=== PATIENT | female | born 1990 | race Caucasian/White ===

== ENCOUNTER → 2020-11-12 13:55 | Outpatient (CLI) | payer BC, SELFPAY ==
--- NOTE | 2020-11-12 13:55 | US_ITS ---
PROCEDURE: US OB /MATERNAL DETAIL CLINICAL INDICATION: US OB COMPLETE, anatomy Scan 20 wk+ COMPARISON: No exams were available for comparison FINDINGS: Single viable intrauterine gestation. Cephalic position. Placenta: placenta grade fundal 1. There is average amount fluid. The cervix appears satisfactory. Closed and measuring 3.5 cm in length. Complete survey performed and was unremarkable on the submitted images as in PACS. No discrete anomalies identified on survey imaging by technologist. Active fetus. Three-vessel cord with satisfactory umbilical cord insertion. 4- chamber heart noted. Survey of brain & ventricles Unremarkable. Face and neck survey unremarkable. Diaphragm and chest views unremarkable. Abdomen: Both kidneys noted and unremarkable. Stomach noted and satisfactory. Spine: Survey of the spine satisfactory with no anomalies identified nor imaged. Both arms and legs noted. Amniotic Fluid: Adequate. Maternal adnexa: No significant findings. Measurements: Average ultrasound age 19weeks 3days. Gestational Age 19weeks 3days Estimated due date by ultrasound age 1104/05/2021. Estimated weight 294g BPD = 19weeks 3days OFD = 19weeks 1day HC = 18weeks 4days AC = 19weeks 6days FL = 19weeks 3days Growth Percentile= 29Percent% Heart Rate = Cerebellum = 19weeks 3days Humerus = 19weeks 3days HC/AC is 1.08 CI is 0.81 FL/BPD is 0.69 FL/AC is 0.21 IMPRESSION: Single living intrauterine fetus currently in cephalic presentation with composite ultrasound age of 19 weeks 3 days with KANG by ultrasound of 04/05/2021. All structures were adequately seen and normal in appearance. Single small echogenic focus incidentally noted in the left ventricle. Dictated by: Constantino Tubbs MD 11/12/2020 17:48 Constantino Tubbs MD in [place] 11/12/2020 17:48
[2020-11-12 16:00] LABS: Basophils % 0.2 % (0.1-2.0); Eosinophils % 0.2 % (0.1-12.0); Hematocrit 37.6 % (37.0-47.0); Hemoglobin 13.1 g/dL (12.2-16.2); Lymphocytes # 1.7 K/mm3 (0.7-4.5); Lymphocytes % 13.6 % (10-50); Mean Corpuscular HGB Conc 34.9 g/dL (31.8-35.4); Mean Corpuscular Hemoglobin 31.6 pg (27.0-31.2); Mean Corpuscular Volume 90.5 fl (81-99); Monocytes # 0.4 K/mm3 (0.1-1.0); Monocytes % 3.3 % (1.7-9.3); Neutrophils # 10.2 K/mm3 (1.8-7.8); Neutrophils % 82.7 % (37.0-80.0); Platelet Count 161 K/mm3 (142-424); Red Blood Count 4.15 M/mm3 (4.20-5.40); Red Cell Distribution Width 13.3 % (11.5-17.5); White Blood Count 12.3 K/mm3 (4.8-10.8)
[2020-11-17 11:30] LABS: HIV Screen 4th Generation wRfx Non Reactive; Hepatitis B Surface Antigen Negative; Hepatitis C Antibody <.1; Rapid Plasma Reagin Ab Titer Non Reactive
== END ==
PROVIDERS: PCP Nurse Practitioner Obstetrics & Gynecology; Visit Provider Nurse Practitioner Obstetrics & Gynecology
DX: Z36.0 Encounter for antenatal screening for chromosomal anomalies (principal)
CPT/HCPCS: 36415; 76811; 85025; 86592; 86703; 86762; 86850; 87340; 87380; G0432

== ENCOUNTER → 2020-11-12 15:06 | Outpatient (CLI) | payer BC, SELFPAY | PROVIDERS: Visit Provider Nurse Practitioner Obstetrics & Gynecology | DX: Z36.0 Encounter for antenatal screening for chromosomal anomalies (principal) | CPT/HCPCS: 36415; 85025; 86592; 86703; 86762; 86850; 87340; 87380; G0432 ==

== ENCOUNTER → 2021-01-08 08:06 | Outpatient (CLI) | payer BC, SELFPAY ==
[2021-01-08 08:41] LABS: Glucose,Fasting 78 mg/dl (74-100)
[2021-01-08 11:07] LABS: Glucose 1 Hour 88 mg/dL (74-100)
[2021-01-09 08:51] LABS: Rubella Antibodies, IgG 1.08 index (Immune >0.99)
[2021-01-09 09:26] LABS: Hepatitis B Surface Antigen Negative (Negative); Hepatitis C Antibody <0.1 s/co ratio (0.0-0.9)
[2021-01-09 11:27] LABS: HIV Screen 4th Generation wRfx Non Reactive (Non Reactive)
[2021-01-09 13:07] LABS: Rapid Plasma Reagin Ab Titer Non Reactive (NonRea<1:1)
== END ==
PROVIDERS: Visit Provider Nurse Practitioner Obstetrics & Gynecology
DX: Z34.90 Encounter for supervision of normal pregnancy, unspecified, unspecified trimester (principal); Z3A.18 18 weeks gestation of pregnancy; Z11.4 Encounter for screening for human immunodeficiency virus [HIV]
CPT/HCPCS: 36415; 82951; 86592; 86703; 86762; 87340; 87380; G0432

== ENCOUNTER → 2021-02-26 17:22 | Outpatient (CLI) | payer BC, SELFPAY | PROVIDERS: Visit Provider Nurse Practitioner Obstetrics & Gynecology | DX: Z34.90 Encounter for supervision of normal pregnancy, unspecified, unspecified trimester (principal) | CPT/HCPCS: 86403 ==

== ENCOUNTER → 2021-03-03 13:42 | Outpatient (CLI) | payer BC, SELFPAY ==
--- NOTE | 2021-03-03 13:42 | US_ITS ---
PROCEDURE: US OB BIOPHYSICAL PROFILE CLINICAL INDICATION: SGA TECHNIQUE: FINDINGS: There is a single live fetus present in breech presentation. heart and body motion noted. The placenta is posterior in implantation and grade 3. The cervix measures two cm and is closed. The following parameters are obtained: Average ultrasound age is Average 33weeks 3days Estimated due date by ultrasound is 04/18/2021. Estimated weight is 2,291g. This is 11 percentile BPD: 30 weeks 6 days OFD: 38weeks HC: 33 weeks 6 days AC: 33 weeks 6 days FL: 35 weeks 1 day heart rate: bpm. HC/AC: 1.02 Cephalic index: 0.68 FL/BPD: 0.89 FL/AC: 0.23 Amniotic fluid index: 3.94cm Qualitative AFV: 2 breathing movements: 2 Gross body movements: 2 Tone: 2 Biophysical profile score: 8 IMPRESSION: Live IUP in breech presentation with an average ultrasound age of 33 weeks 3 days. The cephalic index is low at 68 percent is a FL/BPD is slightly high at 89 percent. Amniotic fluid index is low at 4 cm. Biophysical profile normal 8 of 8 Estimated weight is 2291 g which is the 11th percentile Dictated by: Rodolfo Camargo MD 03/03/2021 16:15 Rodolfo Camargo MD in [facility] 03/03/2021 16:15
== END ==
PROVIDERS: Visit Provider Nurse Practitioner Obstetrics & Gynecology
DX: O36.5990 Maternal care for other known or suspected poor fetal growth, unspecified trimester, not applicable or unspecified (principal)
CPT/HCPCS: 76816; 76819

== ENCOUNTER 2021-03-03 19:16 | Inpatient (IN) | payer BC, SELFPAY ==
[2021-03-03] VITALS (7 sets, daily range): BP systolic 117–147; BP diastolic 76–82; PULSE 66–86; RESP 16–18; TEMP 36.5–36.8; O2SAT 97–99; BMI 22.7
[2021-03-03 15:50] LABS: Microscopic, Urine URINE MICROSCOPIC (MICROSCOPIC)
[2021-03-03 15:54] LABS: Appearance,Urine SL CLOUDY (Clear); Bilirubin,Urine Negative (Negative); Blood, Urine TRACE-I (Negative); Color,Urine YELLOW (Yellow); Glucose,Urine (UA) Negative (Negative); Ketones,Urine Negative (Negative); Leukocyte Esterase,Urine 3+ (Negative); Nitrate,Urine Negative (Negative); Protein,Urine Negative (Negative); Specific Gravity, Urine <= 1.005 (1.005-1.030); Urobilinogen,Urine 0.2 EU/dl (0.2)
[2021-03-03 16:07] LABS: Coronavirus 19, PCR Not Detected (NotDetected); Influenza A, PCR Not Detected (NotDetected); Influenza B, PCR Not Detected (NotDetected)
[2021-03-03 16:08] LABS: Amphetamine/Metha Screen,Urine Negative ng/ml (<1000)
[2021-03-03 16:09] LABS: Barbiturates Screen,Urine Negative ng/ml (<200)
[2021-03-03 16:10] LABS: Benzodiazepines Screen,Urine Negative ng/ml (<200); Cannabinoid Screen,Urine Negative ng/ml (<50)
[2021-03-03 16:11] LABS: Cocaine Screen,Urine Negative ng/ml (<300); Methadone Screen,Urine Negative ng/ml (<300)
[2021-03-03 16:12] LABS: Opiate Screen,Urine Negative ng/ml (<300)
[2021-03-03 16:13] LABS: Phencyclidine Screen,Urine Negative ng/ml (<25)
[2021-03-03 16:17] LABS: Bacteria,Urine 1+ /lpf; RBC,Urine Occasional #/hpf (0-3); Squamous Epithelial Cell,Urine Occasional #/hpf (0-5)
[2021-03-03 17:06] LABS: Fetal Membrane Rupture (Rapid) Negative (Negative)
--- NOTE | 2021-03-03 17:30 | HMH.HP ---
*Admission Date: 03/03/21 *Chief complaint: low amniotic fluid (per ultrasound) *History of present illness: 30 yo @ 35 4/7 by dates who was admitted directly from radiology after outpatient ultrasound showed IUGR and oligohydramnios. care at [facility] with Dr. Lira History of 2 previous c sections: G1 @ 32 wks (patient reports uncertain placental abnormality and growth restriction) G2 @ 39 wks positive chlamydia at first appt this ; patient and were treated but no f/u culture noted +tobacco abuse 1 hr GCT 88 and GBS negative 20 wk anatomy ultrasound showed no anomalies, 3VC, fundal placenta and normal amniotic fluid Measuring small for dates with FH measurement 31cm on 02/26 (34 6/7) FH measurement was also 31cm on 02/12 (32 6/7), showing no interval growth in the 2 weeks between those appointments She was scheduled for ultrasound to assess small for dates measurements, which was performed today On ultrasound today, EFW 2291gm (11%), but this was skewed by head measurements which showed BPD 30 6/7w and OFD 38w INDU 3.94 and david breech presentation posterior placenta, grade 3 BPP 8/8 She denies any gush of fluid or leakage, denies regular contractions or vaginal bleeding Amnisure test negative in triage upon arrival Covid negative, UDS negative UA shows 3+ LE She desires tubal ligation to be done with c section [facility] History I have reviewed the patient's past medical history: Yes Medical History: Reports:: Anxiety *Have you ever received a pneumonia vaccine?: No *Have you received a flu vaccine this season?: No Other Surgeries: Yes: Amputation: No Fractures: No - *Social History Smoking Status: Current every day smoker Alcohol Intake: never Alcohol Intake Frequency:: other Substance Use Type: denies use *Occupational Status:: employed *Travel in the last 8 weeks: None - Psychiatric History Pschychiatric History:: Reports:: Anxiety Family Hx:: No significant family history 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 History (chlamydia positive 2020) : 3 Para: 2 Review of Systems - Review of Systems Review of systems:: pertinent systems reviewed and negative unless documented below - Constitutional Denies chills, Denies fever(s) - *Gastrointestinal Denies abdominal pain - *Genitourinary Denies abnormal vaginal bleeding Meds Home Medications Medication Instructions Recorded Confirmed Type vits no.126-ferrous fum 1 tab PO DAILY tab 11/06/20 03/03/21 History 28 mg iron-folic acid 800 mcg tablet Ferrous Sulfate 325 mg PO DAILY 03/03/21 03/03/21 History Allergies Allergy/AdvReac Type Severity Reaction Status Date / Time No Known Allergies Allergy Verified 02/26/21 10:27 Exam Vital signs and Labs for Last 24 Hours: Temp Pulse Resp BP Pulse Ox 98.2 F 79 18 117/80 99 03/03/21 15:38 03/03/21 15:38 03/03/21 15:14 03/03/21 15:38 03/03/21 15:38 Laboratory Results - last 24 hr 03/03/21 15:08: Urine Color Yellow, Urine Appearance Sl cloudy, Urine pH 7.0, Ur Specific [place] <= 1.005, Urine Protein Negative, Urine Glucose (UA) Negative, Urine Ketones Negative, Urine Blood Trace-i, Urine Nitrate Negative, Urine Bilirubin Negative, Urine Urobilinogen 0.2, Ur Leukocyte Esterase 3+ A, Urine RBC Occasional, Urine WBC 5-10, Ur Squamous Epith Cells Occasional, Urine Bacteria 1+ 03/03/21 15:08: Urine Opiates Screen Negative, Urine Methadone Screen Negative, Ur Barbituates Screen Negative, Ur Phencyclidine Scrn Negative, Ur Amphetamines Screen Negative, U Benzodiazepines Scrn Negative, Urine Cocaine Screen Negative, U Marijuana (THC) Screen Negative 03/03/21 15:48: Blood Type A Positive, Antibody Screen Negative 03/03/21 15:55: SARS-CoV-2 (PCR) Not detected, Influenza A Untype (PCR) Not detected, Influenza Type B (PCR) Not detected 03/03/21 16:40: Membrane Rupture Negative I & O for Last 24 hours: Intake & Output 03/01/21
[2021-03-03 17:35] LABS: Basophils # 0.1 K/mm3 (0-0.2); Basophils % 0.4 % (0.1-2.0); Eosinophils # 0.1 K/mm3 (0.0-0.4); Eosinophils % 0.5 % (0.1-12.0); Hematocrit 36.4 % (37.0-47.0); Hemoglobin 12.2 g/dL (12.2-16.2); Lymphocytes # 2.2 K/mm3 (0.7-4.5); Lymphocytes % 14.1 % (10-50); Mean Corpuscular HGB Conc 33.6 g/dL (31.8-35.4); Mean Corpuscular Hemoglobin 30.9 pg (27.0-31.2); Mean Corpuscular Volume 91.9 fl (81-99); Monocytes # 0.7 K/mm3 (0.1-1.0); Monocytes % 4.6 % (1.7-9.3); Neutrophils # 12.7 K/mm3 (1.8-7.8); Neutrophils % 80.5 % (37.0-80.0); Platelet Count 213 K/mm3 (142-424); Red Blood Count 3.96 M/mm3 (4.20-5.40); Red Cell Distribution Width 13.4 % (11.5-17.5); White Blood Count 15.7 K/mm3 (4.8-10.8)
[2021-03-03 17:37] LABS: MANUAL DIFFERENTIAL MANUAL DIFFERENTIAL (MANUAL DIFF)
[2021-03-03 18:05] LABS: Eosinophils % 2 % (0-3); Lymphocytes % 9 % (10-50); Monocytes % 3 % (2-9); Neutrophils % 82 % (42-76); Platelet Estimate Normal; Total Cells Counted 100
[2021-03-03 20:09] LABS: ABG PH 7.12 mmol/L (7.35-7.45)
--- NOTE | 2021-03-03 20:43 | HMH.OPNOTE ---
Date of procedure: 03/03/21 Pre-op Diagnosis:: 1. 35 4/7 weeks 2. IUGR 3. Oligohydramnios 4. David breech presentation 5. Previous CS x 2 6. Undesired fertility Post-op Diagnosis:: same Procedure performed:: 1. Low Transverse C Section 2. Bilateral tubal ligation Surgeon:: Justine Santos MD Machine Loader(s):: Dr. Wolfgang Rdz PROCESS DEVELOPMENT CHEMIST:: Johny Good Anesthesia: spinal Estimated blood loss (mL): 600 Operative findings:: Liveborn female in david breech presentation Extremely thin lower uterine segment Pelvic adhesions Operative note:: The patient was taken to the OR and spinal was administered without difficulty. She was prepped and draped in normal sterile fashion. A pfannenstiel skin incision was made with the scalpel and carried down to the fascia. The fascia was incised in the midline and sharply dissected off the rectus muscles. The muscles were in the midline and the peritoneum was entered sharply and extended bluntly. The [place] self retaining retractor was placed in the abdomen and a bladder flap was created with both sharp and blunt dissection. Moderate vesicouterine adhesions were noted. The uterus was incised in the lower uterine segment in a transverse fashion and extended bluntly. Amniotomy was performed and scant but clear fluid noted. The breech was delivered in controlled fashion, followed by the shouders and vertex. The vertex was elongated, as noted on ultrasound prior to delivery. The was immediately handed to awaiting hospital internship and nursing staff for evaluation after cord was clamped and cut. Cord blood was collected for pH and a cord segment was preserved. The placenta was manually extracted and noted to be intact. The uterus was repaired with 0-vicryl in a running/locked fashion. A second layer was placed for hemostasis. Filshie clips were placed over bilateral fallopian tubes, completely occluding the tubes. The peritoneum was closed with 2-0 vicryl in a running fashion. The fascia was closed with #1 vicryl in a running fashion. The subcutaneous fat was closed with 2-0 vicryl in an interrupted fashion. The skin was closed with ryanne. The patient tolerated the procedure well. Sponge, lap, needle and instrument counts were correct x 2. She was taken to PACU awake and in stable condition. Condition: stable Disposition: PACU Specimens:: 1. placenta 2. cord pH Complications:: none
--- NOTE | 2021-03-03 20:47 | HMH.ANESI ---
[facility] Anesthesia Record Part I Intake, IV Amount: 1,400 Estimated blood loss (mL): 600 Urine output (mL): 300 Blood Pressure: 134/81 SaO2: 97 Pulse Rate: 77 Respiratory Rate: 16 Temperature: 97.7 F Patient is:: Awake Stable to PACU at:: 20:45
--- NOTE | 2021-03-03 20:48 | HMH.ANESCL ---
[facility] Anesthesia Checklist - Patient Identification Patient Identification: Arm Band - Structural Data Admitted From: Inpatient Planned Operative Procedure/s: C/S Consent for Planned Operative Procedure(s) Verified: Yes - NPO Status Verified Time NPO: 10:00 - Airway Assessment C-Spine Mobility Assessed: Yes TMJ Mobility Assessed: Yes Dentition: Good Dentition - Neurological Assessment Level of Consciousness: Awake Hx Seizures: No Numbness or tingling in extremities: No - Anesthesia Plan Anesthesia Risk discussed: Yes Anesthesia Plan: Verified ASA Class: II Anesthesia Type: MAC w/Spinal [facility] History I have reviewed the patient's past medical history: Yes Medical History: Reports:: Anxiety *Have you ever received a pneumonia vaccine?: No *Have you received a flu vaccine this season?: No Anesthesia experience/problems:: None Other Surgeries: Yes: Amputation: No Fractures: No - *Social History Smoking Status: Current every day smoker Alcohol Intake: never Alcohol Intake Frequency:: other Substance Use Type: denies use *Occupational Status:: employed *Travel in the last 8 weeks: None - Psychiatric History Pschychiatric History:: Reports:: Anxiety Family Hx:: No significant family history 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
--- NOTE | 2021-03-03 21:29 | SUR.PHASEI ---
2054- called sloan Calle to the PACU to check fundus as well as myself. 2113- detailed report called to sloan calle.
[2021-03-04 04:56] VITALS: BP 97/61; PULSE 73; RESP 18; TEMP 36.9; O2SAT 95
[2021-03-04 08:30] LABS: Hematocrit 34.3 % (37.0-47.0); Hemoglobin 11.4 g/dL (12.2-16.2)
--- NOTE | 2021-03-04 08:45 | HMH.PHAINT ---
MEDICATION RECONCILIATION IS COMPLETE USING INFORMATION FROM PATIENT
--- NOTE | 2021-03-04 09:48 | HMH.PHAVTE ---
[facility] VTE Monitoring - Patient Demographics Admission date: 03/04/21 Report Date: 03/04/21 Time: 09:48 Allergies/Adverse Reactions: Patient Allergies No Known Allergies Allergy (Verified 02/26/21 10:27) Height: 1.68 m Weight: 63.957 kg Patient Problems: Current Active Problems UTI (urinary tract infection) (Acute) tubal ligation planned (Acute) History of chlamydia infection (Acute) IUGR (intrauterine growth restriction) (Acute) Tobacco smoking complicating (Acute) Previous section (Acute) Breech presentation (Acute) Oligohydramnios (Acute) 35 weeks gestation of (Acute) - VTE Risk Labs: VTE Related Lab Results Hgb 11.4 g/dL (12.2-16.2) L 03/04/21 07:57 Hct 34.3 % (37.0-47.0) L 03/04/21 07:57 Plt Count 213 K/mm3 (142-424) 03/03/21 15:48 Clinical Trial Participant: No - Prophylaxis VTE Prophylaxis Ordered?: Yes Types of VTE Prophylaxis: IPCS Knee High (POST OP) Location of Applied Device: Bilateral Lower Extremeties
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
--- NOTE | 2021-03-04 12:05 | HMH.ACPN2 ---
Internal Medicine - PN: Subj *Date: 03/04/21 *Time: 12:05 Interval history: POD #1 repeat c section and tubal ligation No unusual complaints Tolerating regular diet Ambulating and voiding without difficulty Postop Hgb 11.4 Ancef x 3 doses for UTI Exam Vital signs and Labs for Last 24 Hours: Temp Pulse Resp BP Pulse Ox 98.4 F 73 18 97/61 L 95 03/04/21 04:56 03/04/21 04:56 03/04/21 04:56 03/04/21 04:56 03/04/21 04:56 Laboratory Results - last 24 hr 03/03/21 15:08: Urine Color Yellow, Urine Appearance Sl cloudy, Urine pH 7.0, Ur Specific [place] <= 1.005, Urine Protein Negative, Urine Glucose (UA) Negative, Urine Ketones Negative, Urine Blood Trace-i, Urine Nitrate Negative, Urine Bilirubin Negative, Urine Urobilinogen 0.2, Ur Leukocyte Esterase 3+ A, Urine RBC Occasional, Urine WBC 5-10, Ur Squamous Epith Cells Occasional, Urine Bacteria 1+ 03/03/21 15:08: Urine Opiates Screen Negative, Urine Methadone Screen Negative, Ur Barbituates Screen Negative, Ur Phencyclidine Scrn Negative, Ur Amphetamines Screen Negative, U Benzodiazepines Scrn Negative, Urine Cocaine Screen Negative, U Marijuana (THC) Screen Negative 03/03/21 15:48: Blood Type A Positive, Antibody Screen Negative 03/03/21 15:48: WBC 15.7 H, RBC 3.96 L, Hgb 12.2, Hct 36.4 L, MCV 91.9, MCH 30.9, MCHC 33.6, RDW 13.4, Plt Count 213, MPV 10.0, Neut % (Auto) 80.5 H, Lymph % (Auto) 14.1, [place] % (Auto) 4.6, Eos % (Auto) 0.5, Baso % (Auto) 0.4, Neut # (Auto) 12.7 H, Lymph # (Auto) 2.2, [place] # (Auto) 0.7, Eos # (Auto) 0.1, Baso # (Auto) 0.1, Total Counted 100, Neutrophils % (Manual) 82 H, Band Neutrophils % 4.0, Lymphocytes % (Manual) 9 L, Monocytes % (Manual) 3, Eosinophils % (Manual) 2, Platelet Estimate Normal 03/03/21 15:55: SARS-CoV-2 (PCR) Not detected, Influenza A Untype (PCR) Not detected, Influenza Type B (PCR) Not detected 03/03/21 16:40: Membrane Rupture Negative 03/03/21 20:01: ABG pH 7.12 L* 03/04/21 07:57: Hgb 11.4 L, Hct 34.3 L I & O for Last 24 hours: Intake & Output 03/02/21 03/03/21 03/04/21 03/05/21 11:59 11:59 11:59 11:59 Intake Total 1400 / 1400 Balance 1400 / 1400 Weight 141 lb Narrative: CONSTITUTIONAL: no acute distress HEENT: mucous membranes moist PULMONARY: breathing unlabored without audible wheezes CV: no tachycardia or visible JVD; normal LE peripheral pulses ABD: soft, ND; appropriately tender but no rebound/guarding : fundus firm at/below umbilicus SKIN: incision well approximated with no drainage, erythema or induration EXT: 1+ edema LEs NEURO: alert/oriented, no altered mental status PSYCH: appropriate mood and demeanor Assessment and Plan (1) 35 weeks gestation of Status: Acute Category: Medical Code(s): Z3A.35 - 35 weeks gestation of (2) Oligohydramnios Status: Acute Category: Medical Code(s): O41.00X0 - Oligohydramnios, unspecified trimester, not applicable or unspecified (3) IUGR (intrauterine growth restriction) Status: Acute Category: Medical (4) Breech presentation Status: Acute Category: Medical Code(s): O32.1XX0 - Maternal care for breech presentation, not applicable or unspecified (5) History of chlamydia infection Status: Acute Category: Medical Code(s): Z86.19 - Personal history of other infectious and parasitic diseases (6) Tobacco smoking complicating Status: Acute Category: Medical Code(s): O99.330 - Smoking (tobacco) complicating , unspecified trimester (7) UTI (urinary tract infection) Status: Acute Category: Medical Code(s): N39.0 - Urinary tract infection, site not specified (8) Previous section Status: Acute Category: Surgical Code(s): Z98.891 - History of uterine scar from previous surgery (9) tubal ligation planned Status: Acute Category: Medical - Assessment and plan all Dx Assessment and Plan for all problems:: Routine postop care
[2021-03-04 19:54] VITALS: BP 107/65; PULSE 85; RESP 18; TEMP 36.6; O2SAT 95
[2021-03-05 05:11] VITALS: BP 106/55; PULSE 72; RESP 16; TEMP 37.2; O2SAT 97
--- NOTE | 2021-03-05 08:32 | HMH.ACPN2 ---
Internal Medicine - PN: Subj *Date: 03/05/21 *Time: 08:32 (This is day #2. The patient is afebrile. Vital signs stable. Wound clean. Abdomen soft. Danita in situ. Lochia normal. Uterine fundus involuting well. She is having some difficulty breast-feeding and is working on that. Her hemoglobin is 11.4 g. Impression: Stable.) Exam Vital signs and Labs for Last 24 Hours: Temp Pulse Resp BP Pulse Ox 98.9 F 72 16 106/55 L 97 03/05/21 05:11 03/05/21 05:11 03/05/21 05:11 03/05/21 05:11 03/05/21 05:11 Laboratory Results - last 24 hr 03/04/21 07:57: Hgb 11.4 L, Hct 34.3 L I & O for Last 24 hours: Intake & Output 03/02/21 03/03/21 03/04/21 03/05/21 11:59 11:59 11:59 11:59 Intake Total 1400 / 1400 Balance 1400 / 1400 Weight 141 lb Microbiology Reports for the Last 24 Hours: Microbiology 03/03/21 17:28 Urine,Catheterized Urine Culture - Preliminary NO GROWTH AFTER 24 HOURS 03/03/21 15:08 Urine,Clean Catch Urine Culture - Preliminary NO GROWTH AFTER 24 HOURS Assessment and Plan (1) 35 weeks gestation of Status: Acute Category: Medical Code(s): Z3A.35 - 35 weeks gestation of (2) Oligohydramnios Status: Acute Category: Medical Code(s): O41.00X0 - Oligohydramnios, unspecified trimester, not applicable or unspecified (3) IUGR (intrauterine growth restriction) Status: Acute Category: Medical (4) Breech presentation Status: Acute Category: Medical Code(s): O32.1XX0 - Maternal care for breech presentation, not applicable or unspecified (5) History of chlamydia infection Status: Acute Category: Medical Code(s): Z86.19 - Personal history of other infectious and parasitic diseases (6) Tobacco smoking complicating Status: Acute Category: Medical Code(s): O99.330 - Smoking (tobacco) complicating , unspecified trimester (7) UTI (urinary tract infection) Status: Acute Category: Medical Code(s): N39.0 - Urinary tract infection, site not specified (8) Previous section Status: Acute Category: Surgical Code(s): Z98.891 - History of uterine scar from previous surgery (9) tubal ligation planned Status: Acute Category: Medical
[2021-03-05 19:52] VITALS: BP 112/82; PULSE 80; RESP 16; TEMP 37.1; O2SAT 97
--- NOTE | 2021-03-06 13:02 | HMH.DCSUM ---
General - General Admission date:: 03/03/21 Discharge date: 03/06/21 HPI HPI: 30 yo @ 35 4/7 by dates who was admitted directly from radiology after outpatient ultrasound showed IUGR and oligohydramnios. care at [facility] with Dr. Lira History of 2 previous c sections: G1 @ 32 wks (patient reports uncertain placental abnormality and growth restriction) G2 @ 39 wks positive chlamydia at first appt this ; patient and were treated but no f/u culture noted +tobacco abuse 1 hr GCT 88 and GBS negative 20 wk anatomy ultrasound showed no anomalies, 3VC, fundal placenta and normal amniotic fluid Measuring small for dates with FH measurement 31cm on 02/26 (34 6/7) FH measurement was also 31cm on 02/12 (32 6/7), showing no interval growth in the 2 weeks between those appointments She was scheduled for ultrasound to assess small for dates measurements, which was performed today On ultrasound today, EFW 2291gm (11%), but this was skewed by head measurements which showed BPD 30 6/7w and OFD 38w INDU 3.94 and david breech presentation posterior placenta, grade 3 BPP 8/8 She denies any gush of fluid or leakage, denies regular contractions or vaginal bleeding Amnisure test negative in triage upon arrival Covid negative, UDS negative UA shows 3+ LE She desires tubal ligation to be done with c section Hospital Course Hospital Course: Postop/ course uneventful Discharged home on POD #3 in stable condition Tolerating regular diet Ambulating and voiding without difficulty Lochia appropriate Rhogam Administration: Not Indicated Objective Vital signs: Temp Pulse Resp BP Pulse Ox 98.7 F 80 16 112/82 97 03/05/21 19:52 03/05/21 19:52 03/05/21 19:52 03/05/21 19:52 03/05/21 19:52 Narrative: CONSTITUTIONAL: no acute distress HEENT: mucous membranes moist PULMONARY: breathing unlabored without audible wheezes CV: no tachycardia or visible JVD; normal LE peripheral pulses ABD: soft, ND; appropriately tender but no rebound/guarding : fundus firm at/below umbilicus SKIN: incision well approximated with no drainage, erythema or induration EXT: 1+ edema LEs NEURO: alert/oriented, no altered mental status PSYCH: appropriate mood and demeanor DS: Diagnosis - Discharge Diagnosis (1) 35 weeks gestation of Status: Acute (2) Oligohydramnios Status: Acute (3) IUGR (intrauterine growth restriction) Status: Acute (4) Breech presentation Status: Acute (5) History of chlamydia infection Status: Acute (6) Tobacco smoking complicating Status: Acute (7) UTI (urinary tract infection) Status: Acute (8) Previous section Status: Acute (9) tubal ligation planned Status: Acute Discharge Plan - Patient Discharge Instructions ACTIVITY: Continue current activity DIET: regular diet Additional Instructions: No tub baths Nothing in the vagina for 6 weeks No driving or heavy lifting Drink plenty of fluids Patient Instructions: Depression, Hemorrhage, DI for , DI for Pre-eclampsia, [facility] Post Discharge Instructions, Preventing the Spread of Coronavirus Discharge Instructions - Follow up Plan Follow up with: David Lira MD [Primary Care Provider] - Disposition: Home, Self-Care Condition at discharge:: Stable Home Medications: Home Medications Medication Instructions Recorded Confirmed Type vits no.126-ferrous fum 1 tab PO DAILY tab 11/06/20 03/03/21 History 28 mg iron-folic acid 800 mcg tablet Ferrous Sulfate 325 mg PO DAILY 03/03/21 03/03/21 History Ibuprofen [Motrin 400mg 800 mg PO Q6HP PRN #40 tab 03/06/21 Rx tablet] Oxycodone HCl [OxyIR 5mg tablet] 5 mg PO Q4HP PRN #24 tablet 03/06/21 Rx Prescriptions/Medication Reconciliation: New Acetaminophen [Acetaminophen 325mg tab] 650 mg PO
[2021-03-08 20:07] LABS: POC Glucose,Bedside 72 (70-110)
[2021-03-08 20:07] LABS: POC Glucose,Bedside 67 (70-110)
== END 2021-03-06 16:45 | disposition home or self-care (01) | DRG 785 ==
LOC: OBOUT 19:16 → OB 19:16
PROVIDERS: Obstetrics & Gynecology; Admitting Provider Nurse Practitioner Obstetrics & Gynecology; PCP Nurse Practitioner Obstetrics & Gynecology; Visit Provider Nurse Practitioner Obstetrics & Gynecology
PROC: 0UL70ZZ Occlusion of Bilateral Fallopian Tubes, Open Approach (ICD-10-PCS; CPT 59514; principal; 2021-03-03 18:15)
DX: O41.03X0 Oligohydramnios, third trimester, not applicable or unspecified (principal); O32.1XX0 Maternal care for breech presentation, not applicable or unspecified; Z3A.35 35 weeks gestation of pregnancy; Z37.0 Single live birth; Z30.2 Encounter for sterilization; O36.5930 Maternal care for other known or suspected poor fetal growth, third trimester, not applicable or unspecified; O34.211 Maternal care for low transverse scar from previous cesarean delivery; N85.8 Other specified noninflammatory disorders of uterus
CPT/HCPCS: 59514; 58611; 36415; 59025; 80305; 81001; 82962; 84112; 85007; 85014; 85018; 85025; 86850; 87086; 94761; C9803; G0283; J0131; J2405; U0003; U0005